=== PATIENT | female | born 1950 | race Caucasian/White ===

== ENCOUNTER → 2017-07-11 | Outpatient (CLI) | payer MEDICARE ==
[~2017-07-11] MED LIST: IBUPROFEN 400400 M2 PO; PERCOCET PO; XARELTO10 MG PO
== END ==
LOC: M.MRI 16:42
DX: S83.272A Complex tear of lateral meniscus, current injury, left knee, initial encounter (principal); S83.242A Other tear of medial meniscus, current injury, left knee, initial encounter; M17.12 Unilateral primary osteoarthritis, left knee; X58.XXXA Exposure to other specified factors, initial encounter; Y93.89 Activity, other specified; Y92.89 Other specified places as the place of occurrence of the external cause; Y99.8 Other external cause status

== ENCOUNTER 2017-08-15 06:32 | Inpatient (IN) | payer MEDICARE ==
[2017-08-03 09:41] LABS: HEMATOCRIT 39.3 % (37.0-47.0); HEMOGLOBIN 13.2 gm/dL (12.0-15.0); MCH 29.2 pg (26.0-34.0); MCHC 33.7 g/dL (28.0-37.0); MCV 86.7 fL (80.0-100.0); MPV 8.1 fl. (7.2-11.1); RBC 4.53 mil/uL (4.20-5.00); RDW-CV 13.4 % (10.5-14.5); WBC 5.2 thou/uL (4.0-11.0)
[2017-08-03 09:46] LABS: PROTIME 9.9 Seconds (9.20-11.50)
[2017-08-03 09:49] LABS: URINE BILIRUBIN NEGATIVE (Negative); URINE BLOOD NEGATIVE (Negative); URINE CLARITY CLEAR; URINE COLOR YELLOW; URINE GLUCOSE-RANDOM NEGATIVE (Negative); URINE KETONES NEGATIVE (Negative); URINE LEUKOCYTES-REFLEX NEGATIVE (Negative); URINE NITRITE-REFLEX NEGATIVE (Negative); URINE PROTEIN NEGATIVE (Negative); URINE SPECIFIC GRAVITY <= 1.005 (1.005-1.030); URINE UROBILINOGEN 0.2 E.U./dl (0.2-1.0)
[2017-08-03 10:05] LABS: ALBUMIN 3.5 g/dL (3.4-5.0); CREATININE 0.8 mg/dL (0.6-1.3); POTASSIUM 4.2 mmol/L (3.5-5.1); TOTAL BILIRUBIN 0.5 mg/dL (<0.1-1.0); TOTAL PROTEIN 6.8 g/dL (6.4-8.2)
--- NOTE | 2017-08-03 16:02 | EKG ---
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 08/03/17 1602 0919 0919 Israel Esqueda MD, FACC /EPI
[~2017-08-15] VITALS: Ht 167.6 cm; Wt 88.5 kg
[~2017-08-15 06:32] MED LIST changes: -PERCOCET PO; -XARELTO10 MG PO
[2017-08-15 08:14] VITALS: BP 140/76
[2017-08-15 13:15] VITALS: BP 137/74
--- NOTE | 2017-08-15 13:15 | NUR ---
PATIENT ARRIVED TO ROOM 312 VIA BED S/P LEFT TOTAL KNEE. PATIENT ALERT AND ORIENTED, DROWSY, BUT AROUSABLE. O2 IN PLACE AT 3L/NC. CONTINUOUS SAT MONITOR IN PLACE. SALINE LOCK NOTED TO LEFT HAND. MARGARET HOSE TO RIGHT LEG, SCD FOOT PUMPS IN PLACE BILATERALLY. POLAR CARE TO LEFT KNEE. BULKY DRESSING INTACT TO LEFT KNEE. ASSESSMENT CHARTED. VITALS STABLE. ORIENTED TO ROOM AND ENVIRONMENT. CALL LIGHT WITHIN REACH. WILL CONTINUE WITH PLAN OF CARE.
--- NOTE | 2017-08-15 15:19 | NUR ---
NO OT AT THIS TIME, OT DEFERING ORDERS TO PT.
[2017-08-15 17:13] VITALS: BP 131/73
--- NOTE | 2017-08-15 18:38 | NUR ---
PATIENT HAS BEEN A/O X 4 THIS SHIFT SINCE SURGERY. MEDICATED FOR LEFT KNEE PAIN WITH ORAL PAIN MEDS WITH GOOD RELIEF. VOIDED PER BEDPAN THIS AFTERNOON. HEMOVAC REMAINS IN PLACE, DRESSING TO LEFT KNEE CLEAN, DRY AND INTACT. POLAR CARE IN PLACE. SCDS IN PLACE. O2 AT 3L/NC. CPAP SET UP PER RT. REPOSITIONED EVERY 2 HOURS FOR COMFORT. AT BEDSIDE THIS SHIFT. HOURLY ROUNDING COMPLETED. CALL LIGHT WITHIN REACH. WILL CONTINUE WITH PLAN OF CARE.
[2017-08-15 20:30] VITALS: BP 140/53
[2017-08-16 00:25] VITALS: BP 109/52
[2017-08-16 05:23] LABS: HEMATOCRIT 36.2 % (37.0-47.0)
--- NOTE | 2017-08-16 05:32 | NUR ---
PATIENT ALERT AND ORIENTED. VITALS STABLE. ON 3L OF OXYGEN. CPAP AT HS. LEFT KNEE DRESSING C/D/I. PAIN CONTROLLED WITH PO MEDICATION. HEMAVAC IN PLACE. REPOSITONED EVERY TWO HOURS. VOIDING PER BEDPAN. FLUIDS INFUSING PER ORDER. HOURLY ROUNDS. BED ALARM IN USE. NURSING WILL CONTINUE TO MONITOR.
[2017-08-16 06:56] VITALS: BP 131/64
--- NOTE | 2017-08-16 10:31 | NUR ---
SW met with pt to complete initial assessment, introduce self, and SW role. Pt alert, oriented, pleasant. Pt says she feels comfortable and confident in her ability to go home; pt wants to be able to go home today. Pt lives at home with her and has family support. Pt said she went to [employer] after the joint class and is renting a rolling walker and toilet riser and shower bench so she did not want SW to order any supplies. Pt has CPM in her room. Pt preference for OP PT and OT to [facility] in [place] she is a current pt there and her provides rides. Pt signed the CMS form and it is in pt chart. No other needs or concerns expressed.
[2017-08-16] MEDS ORDERED: XARELTO10 MG PO (10:41)
[2017-08-16] MEDS ORDERED: PERCOCET PO (10:41)
[2017-08-16 10:43] VITALS: BP 131/64
[2017-08-16 10:57] VITALS: BP 131/64
[2017-08-16 11:58] VITALS: BP 144/55
--- NOTE | 2017-08-16 12:27 | NUR ---
CALLED IN XARELTO PRESCRIPTION WRITTEN TO PT[facility]S [facility] IN [place]. COPAY IS $13.99. PT.NOTIFIED.
--- NOTE | 2017-08-16 14:41 | NUR ---
PATIENT DISCHARGING HOME WITH HOME HEALTH. IV REMOVED. SCRIPT FOR PERCOCET AND XARELTO GIVEN. PAIN CONTROLLED WITH PO MEDS. PATIENT VERBALIZES UNDERSTANDING OF DC INSTRUCTIONS. HEMOVAC REMOVED THIS AFTERNOON. BILATERAL TEDS IN PLACE. [facility] SENT WITH PATIENT.
--- NOTE | 2017-08-17 12:43 | S ---
[place] [address] SURGICAL PATH RPT PROCEDURE Name: ESPERANZA MAURER Room: [address] IN M.R.#: [id number] Admission: 08/15/17 Date of : 48 Discharge: 08/16/17 Report #: [id number] Path Case #: [id number] PATHOLOGY REPORT COLLECTION DATE: 08/15/2017 RECEIVED DATE: 08/15/2017 SUBMITTING PHYS: Dr. South Espinoza II OTHER PHYS: Dr. Sigifredo Gan MD SPECIMEN(S) RECEIVED: A.Bone left knee * * * * * * * * * * * * FINAL DIAGNOSIS: Bone left knee, total knee replacement: - Benign meniscus, synovium and fibrofatty tissue and benign bone and cartilage with severe degenerative changes. (AUSTYN:db; 08/17/2017) PATHOLOGIST: Levar Zapien M.D. REPORT ELECTRONICALLY SIGNED BY: Levar Zapien M.D. DATE/TIME: 08/17/2017 12:42 * * * * * * * * * * * * GROSS PATHOLOGY: Received in formalin labeled "Esperanza Maurer and bone left knee," are multiple segments of bone, including tibial plateau, measuring 19.5 x 9.0 x 2.0 cm in aggregate dimensions, and 3.0 x 2.0 x 1.8 cm yellow lobulated soft tissue and meniscus, measuring 3.2 x 1.0 x 1.0. Peripheral osteophytes are present. The specimen shows focal eburnation of the articular surfaces. 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 (SWS; 08/15/2017) CLINICAL HISTORY: Left knee degenerative joint disease INITIAL CPT CODE(S): A; 59398, 75098 Professional services performed by [facility] at [facility], [address] [place] [address]. Technical services performed by [facility] at [address] [place] [address], [facility] [address] [place] [address]. [place] [address] SURGICAL PATH RPT PROCEDURE Name: ESPERANZA MAURER Room: [address] IN ..#: [id number] Admission: 08/15/17 Date of : 48 Discharge: 08/16/17 Report #: [id number] Path Case #: [id number] [facility] [address] [place] [id number] PHONE: [phone] DIRECTOR: Chetan Sevilla M.D. * * * END OF REPORT * * *
--- NOTE | 2017-08-21 20:16 | D ---
[address] [address] DISCHARGE SUMMARY Name: JANINE MAURER Room: [address] IN M.R.#: [id number] Admission: 08/15/17 Attend Phys: Mai Carroll Discharge: 08/16/17 Date of : 48 Report #: [id number] THIS REPORT FOR: //name// CC: Jerry Mccauley DATE OF SERVICE: 08/16/2017 DISCHARGE DIAGNOSES: Degenerative joint disease of the left knee, status post surgery. HOSPITAL COURSE: The patient is a 66-year-old female, who presented to us here postop. The patient had DJD of the left knee and underwent surgery with Dr. Espinoza. The patient was admitted and doing better today. She will work with PT and OT and if she continues to do well, she will then be discharged home if okay with Dr. Garcia. DISCHARGE PHYSICAL EXAMINATION: VITAL SIGNS: Temperature 36.8, heart rate 77, respiratory rate 18, blood pressure 131/64, and 98% on room air. GENERAL: The patient is alert. She is oriented x 3, not in acute respiratory distress. HEENT: Normocephalic, atraumatic. Nares patent. Clear pharynx. NECK: Supple. No lymphadenopathy. CARDIOVASCULAR: Normal rate, regular rhythm. No murmurs noted. RESPIRATORY: Clear to auscultation bilaterally. GASTROINTESTINAL: Abdomen is soft and nontender. Good bowel sounds. No organomegaly. GENITOURINARY: Deferred. MUSCULOSKELETAL: Good strength. NEUROLOGIC: Grossly normal. PSYCHIATRIC: The patient is calm. Again, the patient will be discharged with PT and OT. DISCHARGE FOLLOWUP: Dr. Espinoza per him and PCP in 3-5 days. Notify the physician if there is fever 38, pain uncontrolled by medication, shortness of breath or chest pain. The patient is to follow with moderate drainage. DISCHARGE MEDICATIONS: Ortho has given a prescription for Xarelto 10 mg daily x 7 days and Percocet 10/325 one to two tabs every 4-6 hours 7 days. I spent 31 minutes taking care of this patient today. <ELECTRONICALLY SIGNED> By: Meliza Oleary MD 08/21/172015 1000 [id number] Oleary MD /nt
--- NOTE | 2017-08-22 08:30 | OP ---
[address] [address] OPERATIVE REPORT Name: JANINE MAURER Room: [address] IN M.R.#: [id number] Admission: 08/15/17 Attend Phys: Mai Carroll Discharge: 08/16/17 Date of : 48 Report #: [id number] THIS REPORT FOR: //name// CC: Jerry Mccauley DATE OF SERVICE: 08/15/2017 PREOPERATIVE DIAGNOSIS: Left knee osteoarthritis. POSTOPERATIVE DIAGNOSIS: Left knee osteoarthritis. PROCEDURE: Left total knee arthroplasty. SURGEON: South Espinoza II, DO LATIN DANCE INSTRUCTOR: JAMI Duke ANESTHESIA: Per operative record. ESTIMATED BLOOD LOSS: 50 mL. ANTIBIOTICS: Per operative record. DRAINS: A medium Hemovac. COMPLICATIONS: None. CONDITION: The patient stable to recovery room. BRIEF HISTORY: The patient was seen in the preop area. Preop H and P was performed. Questions were answered. The patient's extremity was marked. Risks and benefits were discussed with her in detail and she elected to proceed. DESCRIPTION OF PROCEDURE: The patient was brought to the operative suite and placed supine on the operating table. After appropriate anesthesia, the patient's left knee was sterilely prepped and draped and a well-padded tourniquet applied to the upper thigh, which was inflated to 300 mmHg for the duration of the procedure. Surgery began with my midline incision over the left knee, carried down to subcutaneous tissues. A medial parapatellar arthrotomy was performed and carried down to bone. The patella was then everted and excess soft tissue removed around the femur. The femoral cutting block was applied and checked with the drop jacquelyn for rotational alignment, pinned in appropriate position, and appropriate cuts were made. The 4-in-1 cutting block was then applied, checked for rotational alignment, [place] [address] OPERATIVE REPORT Name: JANINE MAURER Room: [address] IN ..#: [id number] Admission: 08/15/17 Attend Phys: Mai Carroll Discharge: 08/16/17 Date of : 48 Report #: [id number] appropriate cuts were made. Attention was then turned to the tibia. Retractors were placed. Tibial cutting block was applied, checked with a drop jacquelyn for rotation alignment and slope, pinned in appropriate position and appropriate cut was made. Tibia bone was removed. Tibial base plate was then applied. Femur was then applied and box cut was reamed. It was then trialed with the appropriate sized spacer, showed to have excellent flexion, extension and excellent stability of the knee. The patella was then reamed in appropriate fashion, drilled the 3 peg holes and trialed and found to have excellent flexion and extension of the knee with excellent tracking of the patella within the groove. These implants were then removed. The finals were then selected. Cement was mixed and applied to the final implants. The tibia was punched in appropriate fashion. Bone ends were cleaned with Pulsavac irrigation. Cement was then applied to the bony ends as well as the implant. These were malleted in position, held the knee in compression and extension to allow it to cure. After appropriate amount of time had been allowed and the cement had cured, excess was removed with using a [place] and osteotome. This was once again trialed with the appropriate spacer, found to have excellent flexion, extension and final selected and malleted in position. The tourniquet was deflated. Hemostasis was maintained with electrocautery. The pain cocktail was injected and PRP gel was sprayed throughout the internal aspects of the knee. A medium Hemovac drain was then applied. Capsule was closed with a FiberWire and Vicryl stitch. Skin was closed with Vicryl and Monocryl stitch. Dermabond and sterile dressing applied. The patient transported to recovery room in stable condition. Counts were correct throughout the procedure. <ELECTRONICALLY SIGNED> By: South Espinoza II, DO 08/22/17 0830 2234 [id number] Espinoza II, DO /nt
== END 2017-08-16 15:21 | disposition home health service (06) | DRG 470 ==
LOC: M.PRE 06:32 → M.TBA 06:57 → M.PRE 08:47 → M.3W 12:28
PROVIDERS: Orthopaedic Surgery; ADMIT Internal Medicine
PROC: 0SRD0J9 Replacement of Left Knee Joint with Synthetic Substitute, Cemented, Open Approach (ICD-10-PCS; principal; 2017-08-15)
DX: M17.12 Unilateral primary osteoarthritis, left knee (principal); Z79.899 Other long term (current) drug therapy; Z79.1 Long term (current) use of non-steroidal anti-inflammatories (NSAID); Z90.711 Acquired absence of uterus with remaining cervical stump; Z82.49 Family history of ischemic heart disease and other diseases of the circulatory system; Z80.8 Family history of malignant neoplasm of other organs or systems; Z87.891 Personal history of nicotine dependence; Z23 Encounter for immunization